=== PATIENT | female | born 1960 | race Caucasian/White ===

== ENCOUNTER → 2020-08-03 17:49 | Outpatient (CLI) | payer BC, SELFPAY ==
--- NOTE | ~2020-08-03 | MM_ITS ---
EXAMINATION: MM screening jarred BI w sea HISTORY: Screening TECHNIQUE: Craniocaudal and mediolateral oblique 3-D tomosynthesis images were obtained and synthetic 2-D images were generated. CAD analysis was submitted and interpreted. COMPARISON: No prior mammogram is available for comparison at this institution. BREAST PARENCHYMAL COMPOSITION: There are scattered areas of fibroglandular density. FINDINGS: There are developing subtle calcifications in the central aspect of the left breast. The ri ght breast is stable without evidence for malignancy. IMPRESSION: 1. Developing left breast calcifications. 2. Magnification views are recommended. BI-RADS Category 0: Incomplete: Needs additional imaging evaluation. Reviewed, dictated and finalized at location A. ORIGINATOR
== END ==
PROVIDERS: PCP Family Medicine; Visit Provider Obstetrics & Gynecology Gynecology
DX: Z12.31 Encounter for screening mammogram for malignant neoplasm of breast (principal); R92.8 Other abnormal and inconclusive findings on diagnostic imaging of breast
CPT/HCPCS: 77063; 77067

== ENCOUNTER → 2020-08-23 09:33 | Outpatient (CLI) | payer BC, SELFPAY ==
--- NOTE | ~2020-08-23 | MMUS_ITS ---
EXAMINATION: MM diagnostic mammo unilat LT, US breast BI complete HISTORY: Developing left breast calcifications reported on 08/03/2020 screening mammogram. In the meantime, patient reports bilateral palpable breast lumps, 2 on the left, one on the right TECHNIQUE: Additional 3-D ML tomosynthesis images of left breast were performed and synthetic 2-D abrahan ges were generated. Magnification views of left breast. CAD analysis was submitted and interpreted. H igh resolution bilateral complete breast ultrasound was performed. COMPARISON: bilateral digital screening mammogram 07/01/2013 bilateral breast ultrasound examination FINDINGS: MAMMOGRAPHIC FINDINGS: Occasional benign calcifications and arterial calcification are noted. No malignant calcifications ar e evident. ULTRASOUND: Left breast 9:00 3 cm from nipple: Parallel circumscribed approximately 1.5 x 4 mm sonolucency withou t suspicious shadowing, consistent with benign process. No suspicious mass or shadowing of either breast is evident otherwise. IMPRESSION: 1. No mammographic evidence of malignancy 2. Routine annual mammographic screening follow-up is recommended. BI-RADS Category 2: Benign finding(s). Reviewed, dictated and finalized at location A. 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 No mammographic evidence of malignancy 2. Routine annual mammographic screening follow-up is recommended. BI-RADS Category 2: Benign finding(s).
== END ==
PROVIDERS: Visit Provider Obstetrics & Gynecology Gynecology
DX: N63.25 Unspecified lump in the left breast, overlapping quadrants (principal)
CPT/HCPCS: 76641; 77065

== ENCOUNTER 2020-08-23 10:51 | Outpatient (CLI) | payer BC, SELFPAY ==
--- NOTE | 2020-08-23 11:23 | ECG_ITS ---
Measurements Intervals [place] Rate: 64 P: 42 AR: 156 QRS: 45 QRSD: 88 T: 46 QT: 379 QTc: 393 Interpretive Statements SINUS RHYTHM BASELINE WANDER- V4-V6 NORMAL ECG Electronically Signed On 08-23-2020 11:33:24 SMALL STOCK FACER by Ihsan Wilkins D.O.
== END 2020-08-23 10:52 | disposition home or self-care (01) ==
LOC: ANHLAB 10:52
PROVIDERS: Visit Provider Family Medicine
DX: R07.89 Other chest pain (principal)
CPT/HCPCS: 93005

== ENCOUNTER 2020-09-07 00:40 | Outpatient (CLI) | payer BC, SELFPAY ==
[2020-09-07 18:51] LABS: SARS-CoV-2 RNA PCR Negative
== END 2020-09-07 00:41 | disposition home or self-care (01) ==
LOC: ANHCOVIDDT 00:41
PROVIDERS: Visit Provider Internal Medicine Gastroenterology
DX: Z01.812 Encounter for preprocedural laboratory examination (principal); Z20.828 Contact with and (suspected) exposure to other viral communicable diseases
CPT/HCPCS: 87635; C9803; U0003

== ENCOUNTER 2020-09-10 01:17 | Day surgery (SDC) | payer BC, SELFPAY ==
[2020-09-03 12:25] VITALS: BMI 25.0
[2020-09-10 07:13] VITALS: BP 112/72; PULSE 84; RESP 18; TEMP 36.6; O2SAT 98
[2020-09-10] MEDS: LACTATED RINGERS 1,000 ML 150 ML IV CONT (07:26)
--- NOTE | 2020-09-10 08:06 | WPDGICN ---
Assessment and Plan Assessment and plan (1) Family history of colon cancer in mother: Code(s): Z80.0 - Family history of malignant neoplasm of digestive organs Status: Acute Assessment and Plan: Patient's mother developed colon cancer at age 49 and passed weight age 50. Plan is for screening colonoscopy now and at 5 year intervals in the future. GI Consult Note Consult date/time: 09/10/20 08:06 HPI: Mikki Blevins is a 60 year old female Seen in evaluation at the request of Dr Yana Hayden. patient presents for screening colonoscopy. Family history is significant that her mother with colon cancer at age 50. Patient states that her own current weight appetite bowel movements are normal. She denies abdominal pain. She has had no bleeding. Her last colonoscopy 6 years ago was unremarkable. Family history is otherwise unremarkable as well. [facility] Past Medical History Medical History (Updated 09/10/20 @ 08:07 by Gabo Prado MD) Normal colonoscopy (~09/04/14) Normal colonoscopy (~09/03/09) Pap smear for cervical cancer screening Family History Family History Grandparent Family history of malignant neoplasm Diabetes mellitus Mother Carcinoma of colon, Onset Age: 51 Patient's mother is , Onset Age: 51 Father Acute myocardial infarction, Onset Age: 58 Hypertension Family history of elevated blood lipids Cerebrovascular accident Family history of coronary artery disease Patient's father is , Onset Age: 58 Sibling Family history of rheumatoid arthritis Family history of alcoholism Family history of cardiovascular disease Acute myocardial infarction, Onset Age: 49 Family history of coronary artery disease Patient's brother is , Onset Age: 49 Social History Social History Smoking status: Never smoker Alcohol intake: current Drinks per week: 3 Alcohol use details: WINE Substance use: never Substance use type: does not use Living arrangements: with family Spiritual care concerns: No Meds Home Medications and Allergies Home Medications Medication Instructions Recorded Confirmed Type albuterol sulfate 90 mcg/actuation 2 puff INHALATION Q4-6H PRN gm 08/26/19 09/03/20 History aerosol inhaler amlodipine 2.5 mg-benazepril 10 mg 1 cap PO DAILY #90 cap 03/16/20 09/03/20 Rx capsule budesonide-formoterol HFA 160 2 puff INHALATION Q12H #10.2 gm 03/16/20 09/03/20 Rx mcg-4.5 mcg/actuation aerosol inhaler ergocalciferol (vitamin D2) 1,250 50,000 unit PO WEEKLY #14 cap 03/16/20 09/03/20 Rx mcg (50,000 unit) capsule fluticasone propionate 50 2 spray NASAL DAILY #9.9 ml 03/16/20 09/03/20 Rx mcg/actuation nasal spray,suspension lorazepam 0.5 mg tablet 0.5 mg PO DAILY PRN #30 tablet 03/16/20 09/03/20 Rx montelukast 10 mg tablet 10 mg PO DAILY #90 tablet 03/16/20 09/03/20 Rx simvastatin 20 mg tablet 20 mg PO DAILY #90 tablet 03/16/20 09/03/20 Rx hydrocortisone 1 % topical cream 1 applic TOPICAL TID PRN #30 gm 06/21/20 09/03/20 Rx olopatadine 1 drop EACH EYE Q6-8H PRN 09/03/20 09/03/20 History Allergies Allergy/AdvReac Type Severity Reaction Status Date / Time Penicillins Allergy Intermediate Skin Verified 09/10/20 07:11 Reaction Vital Signs Vital Signs - 24 hr 09/10/20 07:13 Temperature 97.8 F Pulse Rate 84 Respiratory Rate 18 Blood Pressure 112/72 Pulse Oximetry 98 Exam Narrative: Exam Narrative: Physical exam reveals patient to be alert. Vital signs stable. HEENT exam unremarkable. Lungs are clear to auscultation and percussion. Heart is without murmur or extra sounds. Abdominal exam bowel sounds are present soft nontender with no organomegaly. Digital external rectal exam is normal.
--- NOTE | 2020-09-10 08:37 | WPDANESEPPF ---
Anes - Initial Pre Proc Eval Procedure: Operation Date: 09/10/20 08:30 Proposed Procedures p Screening Colonoscopy - Gabo Prado MD Date/Time: 09/10/20 08:37 Surgeon: Gabo Prado MD Pre Op Diagnosis: neoplasm screening, hx of colon polyp Patient Data Age: 60 Gender: F Height: 5 ft 4 in Weight: 68.6 kg Last Vital Signs Temp 97.8 F 09/10/20 07:13 Pulse 84 09/10/20 07:13 Resp 18 09/10/20 07:13 BP 112/72 09/10/20 07:13 Pulse Ox 98 09/10/20 07:13 Allergies Allergy/AdvReac Type Severity Reaction Status Date / Time Penicillins Allergy Intermediate Skin Verified 09/10/20 07:11 Reaction Home Medications Medication Instructions Recorded Confirmed Type albuterol sulfate 90 mcg/actuation 2 puff INHALATION Q4-6H PRN gm 08/26/19 09/03/20 History aerosol inhaler amlodipine 2.5 mg-benazepril 10 mg 1 cap PO DAILY #90 cap 03/16/20 09/03/20 Rx capsule budesonide-formoterol HFA 160 2 puff INHALATION Q12H #10.2 gm 03/16/20 09/03/20 Rx mcg-4.5 mcg/actuation aerosol inhaler ergocalciferol (vitamin D2) 1,250 50,000 unit PO WEEKLY #14 cap 03/16/20 09/03/20 Rx mcg (50,000 unit) capsule fluticasone propionate 50 2 spray NASAL DAILY #9.9 ml 03/16/20 09/03/20 Rx mcg/actuation nasal spray,suspension lorazepam 0.5 mg tablet 0.5 mg PO DAILY PRN #30 tablet 03/16/20 09/03/20 Rx montelukast 10 mg tablet 10 mg PO DAILY #90 tablet 03/16/20 09/03/20 Rx simvastatin 20 mg tablet 20 mg PO DAILY #90 tablet 03/16/20 09/03/20 Rx hydrocortisone 1 % topical cream 1 applic TOPICAL TID PRN #30 gm 06/21/20 09/03/20 Rx olopatadine 1 drop EACH EYE Q6-8H PRN 09/03/20 09/03/20 History Patient hx anesthesia problems: none Family hx anesthesia problems: none PMFSH Past Medical History Medical History (Updated 09/10/20 @ 08:37 by Josh Salmon MD) Asthma Essential (primary) hypertension Mixed hyperlipidemia Normal colonoscopy (~09/04/14) Normal colonoscopy (~09/03/09) Pap smear for cervical cancer screening Family History Family History Grandparent Family history of malignant neoplasm Diabetes mellitus Mother Carcinoma of colon, Onset Age: 51 Patient's mother is , Onset Age: 51 Father Acute myocardial infarction, Onset Age: 58 Hypertension Family history of elevated blood lipids Cerebrovascular accident Family history of coronary artery disease Patient's father is , Onset Age: 58 Sibling Family history of rheumatoid arthritis Family history of alcoholism Family history of cardiovascular disease Acute myocardial infarction, Onset Age: 49 Family history of coronary artery disease Patient's brother is , Onset Age: 49 Social History Social History Smoking status: Never smoker Alcohol intake: current Drinks per week: 3 Alcohol use details: WINE Substance use: never Substance use type: does not use Living arrangements: with family Spiritual care concerns: No Anes - Eval Final PreProcedure Day of Procedure 09/10/20 08:37 Patient weight: normal Heart: regular rate and rhythm Lungs: clear to auscultation Airway: Mallampati scale class II Neurological: alert and oriented Last oral intake: >/= 8 hours ASA classification: II Emergent: no Anesthetic plan: proceed Anesthesia type and monitoring: general GIVS and standard monitoring Informed Consent: The patient's anesthetic plan and its attendant risks and benefits were discussed with the patient/family/POA. Questions were solicited and answers provided to the satisfaction of the patient/family/POA.
[2020-09-10 09:00] VITALS: BP 111/70; PULSE 76; RESP 17; O2SAT 98
[2020-09-10 09:10] VITALS: BP 97/59; PULSE 73; RESP 18; O2SAT 98
[2020-09-10 09:20] VITALS: BP 117/72; PULSE 73; RESP 20; O2SAT 98
== END 2020-09-10 09:35 | disposition home or self-care (01) ==
PROVIDERS: Visit Provider Internal Medicine Gastroenterology
PROC: 0DJD8ZZ Inspection of Lower Intestinal Tract, Via Natural or Artificial Opening Endoscopic (ICD-10-PCS; CPT 45378; principal; 2020-09-10 08:30)
DX: Z12.11 Encounter for screening for malignant neoplasm of colon (principal); Z80.0 Family history of malignant neoplasm of digestive organs; K64.8 Other hemorrhoids; Z79.51 Long term (current) use of inhaled steroids; J45.909 Unspecified asthma, uncomplicated; E78.2 Mixed hyperlipidemia; I10 Essential (primary) hypertension
CPT/HCPCS: 45378; J2704; J7120

== ENCOUNTER 2025-01-09 15:37 | Outpatient (CLI) | payer BC, SELFPAY ==
--- NOTE | ~2025-01-09 | XR_ITS ---
Lumbosacral Spine: AP and lateral views Clinical History: Pain Findings: The normal lordotic curve is maintained. No fracture seen. There is minimal grade 1 anterol isthesis of L4 over L5. There is moderate to advanced facet arthropathy throughout the lumbar spine. There is mild to moderate degenerative disc change at L4-L5 and L5-S1. The sacroiliac joints are norm ally outlined. Impression: Moderate degenerative spondylosis, as above. Reviewed, dictated and finalized at location M. Impression: Moderate degenerative spondylosis, as above.
--- NOTE | ~2025-01-09 | MR_ITS ---
MRI of the lumbar spine Clinical History: Back pain Technique: Axial T2-weighted images, and sagittal T1-weighted, T2-weighted, and and T2 fat-sat images were acquired. Findings: There is no fracture or subluxation of the lumbar spine. Vertebral bodies maintain normal h eight and line. No bone marrow signal abnormality seen. At L1-L2, there is no disc bulge or herniation. No spinal canal stenosis or neural foraminal narrowin g. At L2-L3, there is no disc bulge or herniation. There is minimal facet arthropathy. No central canal stenosis or neural foraminal narrowing. L3-L4, there is mild disc bulge and moderate facet arthropathy. No nina central canal stenosis. Neur al foramina are preserved. At L4-L5, there is mild disc bulge with moderate to advanced facet arthropathy. No central canal sten osis. No definite neural foraminal narrowing. At L5-S1, there is mild disc bulge with moderate facet arthropathy. No central canal stenosis or neur al foraminal narrowing. Paravertebral soft tissues are unremarkable. Impression: Mild degenerative changes, as above. Reviewed, dictated and finalized at location M. Impression: Mild degenerative changes, as above.
== END 2025-01-09 15:38 | disposition home or self-care (01) ==
LOC: GOSHIMG 15:40
PROVIDERS: PCP Chiropractor; Visit Provider Family Medicine
DX: M47.26 Other spondylosis with radiculopathy, lumbar region (principal); R20.0 Anesthesia of skin; M54.50 Low back pain, unspecified; M79.606 Pain in leg, unspecified
CPT/HCPCS: 72100; 72148

== ENCOUNTER 2025-06-03 10:27 | Outpatient (CLI) | payer BC, SELFPAY ==
--- NOTE | 2025-06-03 10:20 | NEURO_ITS ---
Impression: # Complains of left lower extremity pain and discomfort ? 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 ? # Higher involvement cannot be ruled out. Nerve Conduction Studies ?Stim Site NR Peak (ms) P-T Amp (?V) Site1 Site2 Delta-P (ms) Dist (cm) Jama (m/s) Left Sup Fibular Anti Sensory (Ant Lat Mall) 14 cm ? 3.1 7.9 14 cm Ant Lat Mall 3.1 16.0 52 Right Sup Fibular Anti Sensory (Ant Lat Mall) 14 cm ? 3.2 9.3 14 cm Ant Lat Mall 3.2 16.0 50 Left Sural Anti Sensory (Lat Mall) Calf ? 3.9 8.9 Calf Lat Mall 3.9 16.0 41 Right Sural Anti Sensory (Lat Mall) Calf ? 3.7 3.6 Calf Lat Mall 3.7 16.0 43 ?Stim Site NR Onset (ms) O-P Amp (mV) Site1 Site2 Delta-0 (ms) Dist (cm) Jama (m/s) Left Peroneal Motor (Vastus Med) Ankle ? 4.5 4.5 Popit Ankle 8.2 39.0 48 Popit ? 12.7 3.0 Right Peroneal Motor (Vastus Med) Ankle ? 2.8 4.4 Popit Ankle 8.3 38.0 46 Popit ? 11.1 3.6 Left Tibial Motor (Abd Kellogg Brev) Ankle ? 5.2 5.6 Knee Ankle 9.3 40.0 43 Knee ? 14.5 3.8 Right Tibial Motor (Abd Kellogg Brev) Ankle ? 4.5 4.8 Knee Ankle 8.3 39.0 47 Knee ? 12.8 3.4 F Wave Studies ?NR F-Lat (ms) L-R F-Lat (ms) Left Peroneal (Mrkrs) (EDB) ? 45.24 0.36 Right Peroneal (Mrkrs) (EDB) ? 44.88 0.36 Left Tibial (Mrkrs) (Abd Hallucis) ? 49.53 0.78 Right Tibial (Mrkrs) (Abd Hallucis) ? 50.31 0.78 Electromyography ?Side Muscle Nerve Root Ins Act Fibs Amp Dur Recrt Comment Right AntTibialis Dp Br Fibular L4-5 Nml Nml Nml Nml Nml Right Gastroc Tibial S1-2 Nml Nml Nml Nml Nml Right Fibularis Long Sup Br Fibular L5-S1 Nml Nml Nml Nml Nml Right Flex Dig Long Tibial L5-S2 Nml Nml Nml Nml Nml Right Ext Dig Brev Dp Br Fibular L5, S1 Nml Nml Nml Nml Nml Right QuadratusFem QuadFemoris L4-5, S1 Nml Nml Nml Nml Nml Left AntTibialis Dp Br Fibular L4-5 Nml Nml Nml Nml Nml Left Gastroc Tibial S1-2 Nml Nml Nml >12ms +1 Left Fibularis Long Sup Br Fibular L5-S1 Nml Nml Nml Nml Nml Left Flex Dig Long Tibial L5-S2 Nml Nml Nml Nml Nml Left Ext Dig Brev Dp Br Fibular L5, S1 Nml Nml Nml Nml Nml Left QuadratusFem QuadFemoris L4-5, S1 Nml Nml Nml Nml Nml
--- OUTSIDE RECORDS SUMMARY | 2025-06-03 11:52 | XMS_ITS | Clinical Summary ---
Author Organization [address] Address [address] [place] [id number] Care Team Providers Care Transmission Calibration Engineer Name Role Phone Anand Massey MD Primary Care Provider [phone] Allergies Active Allergy Reactions Criticality Noted Date Comments Penicillins Hives,Rash,Shortness of Breath/Wheezing,Unknown High 02/21/1970 Simvastatin Other (See Comments) 01/10/2024 Heart palpitations Medications budesonide-form oteroL (SYMBICORT) 160-4.5 mcg/actuation HFA Aerosol Inhaler INHALE 2 PUFFS EVERY 12 HOURS 0 Active ergocalciferol (VITAMIN D2) 50,000 unit capsule 1 Active fluticasone propionate (FLONASE) 50 mcg/spray [place], Suspension nasal inhaler Administer 2 Sprays in each nostril daily. 0 Active losartan (COZAAR) 25 mg tablet Take 12.5 mg by mouth daily. 4 Active montelukast (SINGULAIR) 10 mg tablet Take 10 mg by mouth daily. Active pravastatin (PRAVACHOL) 10 mg tablet Take 10 mg by mouth. 3 Active LORazepam (ATIVAN) 0.5 mg tablet take 1 tablet (0.5 mg) orally daily as needed for anxiety Active Active Problems No known active problems Encounters Date Type Department Care Team Description 06/03/2025 Chart Note [facility] Jose Luis. [address] [place] [address] Luz Maria Dunlap MD Surgery 05/28/2025 Telephone [facility] Clinical Support [address] [place] [address] [place] [address] Fay Anderson, RN request to schedule LEEP 05/05/2025 External Device Data ST[facility] ABSTRACTION Provider, Abstract 04/27/2025 2:15 PM CDT Procedure visit [facility] [address] 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 Relation Name Status Comments Brother Father Maternal Grandmother Mother Sister 1 Britni Alive Sister 2 Alive Social History Tobacco Use Types Packs/Day Years Used Date Smoking Tobacco: Never Smokeless Tobacco: Never Tobacco Cessation:Counseling Given: Not Answered Alcohol Use Standard Drinks/Week Comments Yes 0 (1 standard drink = 0.6 oz pur e alcohol) socially Comments No Sex and Gender Information Value Date Recorded Sex Assigned at Not on file Legal Sex Female 5:36 PM CDT Gender Identity Not on file Sexual Orientation Not on file Last Filed Vital Signs Vital Sign Reading Time Taken Comments Blood Pressure 142/80 04/27/2025 2:38 PM CDT Pulse 77 07/01/2024 1:30 PM CDT Temperature - - Respiratory Rate - - Oxygen Saturation - - Inhaled Oxygen Concentration - - Weight 74.9 kg (165 lb 3.2 oz) 04/27/2025 2:38 P M CDT Height 162.6 cm (5' 4) 04/27/2025 2:38 PM CDT Body Mass Index 28.36 04/27/2025 2:38 PM CDT Plan of Treatment Health Maintenance Due Date Last Done Comments Pre-Diabetes and Diabetes Screening 1960 DTAP/TDAP/TD VACCINES (1 - Tdap) 02/21/1979 FIT-DNA Q 3 years 02/21/2005 FIT/FOBT Q 1 year 02/21/2005 Flex Sig/CT Colonography Q 5 years 02/21/2005 PNEUMOCOCCAL VACCINE 50+ YEA RS (1 of 1 - PCV) 02/21/2010 ZOSTER VACCINE (1 of 2) 02/21/2010 INFLUENZA VACCINE (#1) 2025 BREAST CANCER SCREENING 09/01/2025 09/01/20 24, 08/23/2020, 08/03/2020, Additional history exists OSTEOPOROSIS SCREENING 09/01/2029 4, 02/28/2019, 08/04/2016 COLORECTAL SCREENING 09/10/2030 09/10/2020 Colorectal Cancer Screening 09/10/2030 RSV VACCINE (60+ or ) (1 - 1-dose 75+ series) 02/21/2035 Preventative Visit- Commercial Completed 02/10/2025 Procedures Procedure Name Priority Date/Time Associated Diagnosis Comments MAMMO 3D FELY SCREEN BILAT W OR WO CAD Routine 09/01/2024 3:15 PM PICTURE PAINTER Breast cancer screening by mammogram XR DEXA BONE DENSITY AXIAL 1 OR MORE SITES Routine 09/01/2024 2:53 PM PICTURE PAINTER Osteoporosis screening from Last 3 Months or Most Recently Relevant to Health Maintenance Results * MAMMO 3D FELY SCREEN BILAT W OR WO CAD (09/01/2024 3:15 PM PICTURE PAINTER) Anatomical Region Laterality Modality Breast Bilateral Mammography 09/01/2024 4:29 PM PICTURE PAINTER Impressions 09/02/2024 8:10 AM PICTURE PAINTER IMPRESSION: No mammographic evidence of malignancy. RECOMMENDATIONS: Routine screening mammogram in one year. DICTATION LOCATION: [facility] Narrative 09/02/2024 8:10 AM PICTURE PAINTER BILATERAL FULL-FIELD DIGITAL SCREENING MAMMOGRAM WITH CAD WITH 3D TOMOSYNTHESIS DATE: 09/01/2024 3:15 PM HISTORY: Routine screening. TECHNIQUE: Full-field digital craniocaudal and mediolateral oblique projections of both breasts were obtained. Low-dose full-field digital breast tomosynthesis examination was performed with 2D and 3D acquisitions. Examination is read in conjunction with computer aided detection. COMPARISON: No prior study is available for comparison. BREAST COMPOSITION: There are scattered areas of fibroglandular density. FINDINGS: No suspicious mass, suspicious microcalcifications, or architectural distortion in either breast is identified. The computer aided diagnosis detects no significant abnormality. OVERALL FINAL ASSESSMENT: BI-RADS CATEGORY 1 : Negative. Procedure Note Brandon Dyer MD - 09/02/2024 BILATERAL FULL-FIELD DIGITAL SCREENING MAMMOGRAM WITH CAD WITH 3D TOMOSYNTHESIS DATE: 09/01/2024 3:15 PM HISTORY: Routine screening. TECHNIQUE: Full-field digital craniocaudal and mediolateral oblique projections of both breasts were obtained. Low-dose full-field digital breast tomosynthesis examination was performed with 2D and 3D acquisitions. Examination is read in conjunction with computer aided detection. COMPARISON: No prior study is available for comparison. BREAST COMPOSITION: There are scattered areas of fibroglandular density. FINDINGS: No suspicious mass, suspicious microcalcifications, or architectural distortion in either breast is identified. The computer aided diagnosis detects no significant abnormality. OVERALL FINAL ASSESSMENT: BI-RADS CATEGORY 1 : Negative. IMPRESSION: No mammographic evidence of malignancy. RECOMMENDATIONS: Routine screening mammogram in one year. DICTATION LOCATION: [facility] Luz Maria Dunlap MD MAMMO ORDERABLES Final Result * XR DEXA BONE DENSITY AXIAL 1 OR MORE SITES (09/01/2024 2:53 PM PICTURE PAINTER) Anatomical Region Laterality Modality Digital Radiogra phy 09/01/2024 2:53 PM PICTURE PAINTER Narrative 09/01/2024 3:06 PM PICTURE PAINTER XR DEXA BONE DENSITY AXIAL 1 OR MORE SITES DATE: 09/01/2024 2:53 PM HISTORY: 64 years old Female with post menopausal symptoms. PROCEDURE: Planar images of the lumbar spine and hip(s) using a [employer] [place] DEXA scanner for bone mineral density determination (BMD). Absolute bone mineral density measurements (in gm/cm^2) are available on the original PACS report. FINDINGS: Lumbar Spine (L1-L4) T-score: -0.3 Left femoral neck T-score: -0.8 Right femoral neck T-score: -1.0 Comments: None IMPRESSION Normal bone mineral density. DEFINITIONS: Normal: T-score above -1.0 Osteopenia T-score less than -1.0 and above -2.5 Osteoporosis: T-score < -2.5 FRAX FRACTURE RISK ASSESSMENT: Risk factors: History of fracture and secondary osteoporosis 10 Year Probability Of Fracture -Major Osteoporotic: 13.0% -Hip: 0.9% -Comparison population: [place], A major osteoporotic fracture is defined as a fracture of the spine, forearm, hip or shoulder. FOLLOW-UP RECOMMENDATIONS: Patients without high risk factors for osteoporosis: T-score -1.0 to -1.5 - Consider repeat BMD in 5-10 years T-score -1.5 to -2.0 - Consider repeat BMD in 3-5 years T-score -2.0 to - 2.5 - Consider repeat BMD every 2 years Patients on treatment for osteoporosis: 1-2 years after initiation of treatment and every 2 years thereafter Dictated by Kobe Ruiz DO DICTATION LOCATION: Location 1 - [facility] Procedure Note Kobe Ruiz DO - 09/01/2024 XR DEXA BONE DENSITY AXIAL 1 OR MORE SITES DATE: 09/01/2024 2:53 PM HISTORY: 64 years old Female with post menopausal symptoms. PROCEDURE: Planar images of the lumbar spine and hip(s) using a [employer] [place] DEXA scanner for bone mineral density determination (BMD). Absolute bone mineral density measurements (in gm/cm^2) are available on the original PACS report. FINDINGS: Lumbar Spine (L1-L4) T-score: -0.3 Left femoral neck T-score: -0.8 Right femoral neck T-score: -1.0 Comments: None IMPRESSION Normal bone mineral density. DEFINITIONS: Normal: T-score above -1.0 Osteopenia T-score less than -1.0 and above -2.5 Osteoporosis: T-score < -2.5 FRAX FRACTURE RISK ASSESSMENT: Risk factors: History of fracture and secondary osteoporosis 10 Year Probability Of Fracture -Major Osteoporotic: 13.0% -Hip: 0.9% -Comparison population: [place], A major osteoporotic fracture is defined as a fracture of the spine, forearm, hip or shoulder. FOLLOW-UP RECOMMENDATIONS: Patients without high risk factors for osteoporosis: T-score -1.0 to -1.5 - Consider repeat BMD in 5-10 years T-score -1.5 to -2.0 - Consider repeat BMD in 3-5 years T-score -2.0 to - 2.5 - Consider repeat BMD every 2 years Patients on treatment for osteoporosis: 1-2 years after initiation of treatment and every 2 years thereafter Dictated by Kobe Ruiz DO DICTATION LOCATION: Location 1 - [facility] us Luz Maria Dunlap MD DIAGNOSTIC IMAGING ORDERABLES Fi nal Result from Last 3 Months or Most Recently Relevant to Health Maintenance Insurance [facility] MemfoACT CHOICE Care Teams Transmission Calibration Engineer Relationship Specialty Start Date End Date Anand Massey MD [address] [place] [address] PCP - General Family Practice 06/30/19
--- OUTSIDE RECORDS SUMMARY | 2025-06-03 11:52 | XMS_ITS | Encounter Summary ---
Author Organization [facility] Address [address] [place] [address] Care Team Providers Care Dietary Director Name Role Phone Yana Hayden DO Primary Care Provider [phone] Bryan López MD Unavailable [phone] Encounter Details Date Type Department Care Team (Late st Contact Info) Description 06/19/2023 Lab Requisition [facility] - DermPath Lab [address] [place] [id number] Social History Tobacco Use Types Packs/Day Years Used Date Smoking Tobacco: Never Smokeless Tobacco: Never Alcohol Use Standard Drinks/Week Comments Yes 0 (1 standard drink = 0.6 oz pur e alcohol) social Comments Unknown Sex and Gender Information Value Date Recorded Sex Assigned at Not on file Legal Sex Female 11:18 AM SOURCING ENGINEER Gender Identity Not on file Sexual Orientation Not on file documented as of this encounter Plan of Treatment Upcoming Encounters Date Type Department Care Team (Late st Contact Info) Description 10/28/2025 1:45 PM SOURCING ENGINEER Office Visit [facility] V[facility] Care [id number] [place] [address] Bryan López MD [address] [place] [address] documented as of this encounter Visit Diagnoses Not on filedocumented in this encounter Care Teams Dietary Director Relationship Specialty Start Date End Date Yana Hayden DO [address] [place] [address] PCP - General Family Medicine 12/29/20 Bryan López [place] [id number] [address] Consulting Physician Cardiac Electrophysiology 12/29/20 documented as of this encounter
--- OUTSIDE RECORDS SUMMARY | 2025-06-03 11:52 | XMS_ITS | Encounter Summary ---
Author Organization [facility] Address [address] [place] [address] Care Team Providers Care Explosive Ordnance Manager Name Role Phone Anand Massey MD Primary Care Provider [phone] Reason for Visit * Reason Onset Date Comments request to schedule LEEP 05/28/2025 Encounter Details Date Type Department Care Team (Late st Contact Info) Description 05/28/2025 Telephone [facility] Health Clinical Support [address] [place] [address] [place] [address] Fay Anderson, RN request to schedule LEEP Social History Tobacco Use Types Packs/Day Years [...] on file documented as of this encounter Miscellaneous Notes * Telephone Encounter - Fay Anderson RN - 05/28/2025 10:41 AM CDT Patient states at her colposcopy visit she thinks she was told she needs to schedule a LEEP but shehas not received a call to schedule. she would like to schedule in June documented in this encounter Plan of Treatment Not on file documented as of this encounter Visit Diagnoses Not on filedocumented in this encounter Care Teams Explosive Ordnance Manager Relationship Specialty Start Date End Date Anand Massey MD [address] [place] [address] PCP - General Family Practice 06/30/19 documented as of this encounter
--- OUTSIDE RECORDS SUMMARY | 2025-06-03 11:52 | XMS_ITS | Clinical Summary ---
Author Organization [facility] Address [address] [place] [address] Care Team Providers Care Burnishing Machine Operator Name Role Phone Purvi Chacon MD Unavailable [phone] Yana Hayden DO Primary Care Provider [phone] Allergies Active Allergy Reactions Criticality Noted Date Comments Penicillins Hives,Other (See comments),Rash,Shortness of breath,Unknown High 02/21/1970 Medications albuterol HFA (PROVENTIL HFA,VENTOLIN HFA,PROAIR HFA) 90 mcg/actuation inhaler INHALE 2 PUFFS BY MOUTH EVERY 4 6 HOURS NEEDED 0 Active amLODIPine-sita zepriL (LOTREL 2.5-10) 2.5-10 mg per capsule 1 Active budesonide-form oteroL (Symbicort) 160-4.5 mcg/actuation inhaler INHALE 2 PUFFS EVERY 12 HOURS 0 Active ergocalciferol (VITAMIN D) 50,000 unit capsule 1 Active fluticasone propionate (FLONASE) 50 mcg/actuation nasal spray SPRAY 2 SPRAYS INTO EACH NOSTRIL EVERY DAY 2 Active LORazepam (ATIVAN) 0.5 mg tablet TAKE 1 TABLET BY MOUTH ONCE DAILY NEEDED FOR ANXIETY 0 Active montelukast (SINGULAIR) 10 mg tablet 1 Active olopatadine (PATANOL) 0.1 % ophthalmic solution Administer 1 drop into affected eye(s) 2 (two) times a day Active omeprazole (PriLOSEC) 20 mg capsule daily 2 Active simvastatin (ZOCOR) 20 mg tablet Take 20 mg by mouth daily 0 Active Active Problems Problem Noted Date Diagnosed Date Breast pain 12/29/2020 Encounters Date Type Department Care Team Description 05/27/2025 3:15 PM CDT - 05/27/2025 11:59 PM CDT Hospital Encounter [facility] [id number] [address] [address] Abnormal chest x-ray Discharge Disposition: Discharge to home or self care from Last 3 Months Social History Tobacco Use Types Packs/Day Years Used Date Smoking Tobacco: Never Comments Unknown Sex and Gender Information Value Date Recorded Sex Assigned at Not on file Legal Sex Female 9:59 AM UNIFIED COMMUNICATIONS ENGINEER Gender Identity Not on file Sexual Orientation Not on file Obstetrics History Last Filed Vital Signs Vital Sign Reading Time Taken Comments Blood Pressure - - Pulse - - Temperature - - Respiratory Rate - - Oxygen Saturation - - Inhaled Oxygen Concentration - - Weight 72.1 kg (159 lb) 12/29/2020 2:04 PM CDT Height 175.3 cm (5' 9) 12/29/2020 2:04 PM CDT Body Mass Index 23.48 12/29/2020 2:04 PM CDT Plan of Treatment Health Maintenance Due Date Last Done Comments Cervical Cancer Screening 1960 Colon Cancer Screening-Colonoscopy 1960 Depression Screening 1960 Fall Risk Assessment 1960 Hepatitis C Screening 1960 Hepatitis B Screening 02/21/1978 Zoster Vaccine (1 of 2) 02/21/2010 Pneumococcal vaccine 65+ (3 of 3 - PCV20 or PCV21) 09/07/2020 09/07/2015, 08/13/2014 Well Visit 65+ 02/21/2025 Influenza Vaccine (#1) 2025 0, 06/19/2019, 07/18/2018, Additional history exists Breast Cancer Screening-Mammogram 09/01/2025 024, 09/01/2024 Osteoporosis Screening-Bone Density Scan 09/01/2026 09/01/2024, 09/01/2024 DTaP/Tdap/Td Vaccine (3 - Td or Tdap) 09/04/2026 09/04/2016, 06/05/2006, 03/11/1996 Procedures Procedure Name Priority Date/Time Associated Diagnosis Comments CT CHEST HIGH RESOLUTION WO CONTRAST Schedule Routine, Read Routine (OP Routine) 05/27/2025 3:38 PM CDT Abnormal chest x-ray from Last 3 Months Results * CT Chest High Resolution WO Contrast (05/27/2025 3:38 PM CDT) Anatomical Region Laterality Modality Chest N/A Computed Tomogra phy 05/27/2025 9:30 PM CDT Impressions 05/27/2025 9:30 PM CDT 1. Normal chest CT. 2. Hepatic steatosis. Electronically signed by: Arnie Csatorena M.D. Narrative 05/27/2025 9:30 PM CDT Examination: Computed tomography of the chest without intravenous contrast DATE: 05/27/2025. HISTORY: Abnormal chest radiograph. TECHNIQUE: Computed tomography of the chest was obtained without intravenous contrast according to standard protocol. FINDINGS: No prior studies are available for comparison. No consolidation, effusion, or pneumothorax. No fibrosis. No suspicious pulmonary nodules or masses. No supraclavicular, axillary, mediastinal, or hilar lymphadenopathy. Heart size normal, no pericardial effusion. Upper abdomen is notable for hepatic steatosis. Bone windows demonstrate no lytic or blastic lesions. Procedure Note Arnie Castorena MD - 05/27/2025 Examination: Computed tomography of the chest without intravenous contrast DATE: 05/27/2025. HISTORY: Abnormal chest radiograph. TECHNIQUE: Computed tomography of the chest was obtained without intravenous contrast according to standard protocol. FINDINGS: No prior studies are available for comparison. No consolidation, effusion, or pneumothorax. No fibrosis. No suspicious pulmonary nodules or masses. No supraclavicular, axillary, mediastinal, or hilar lymphadenopathy. Heart size normal, no pericardial effusion. Upper abdomen is notable for hepatic steatosis. Bone windows demonstrate no lytic or blastic lesions. IMPRESSION: 1. Normal chest CT. 2. Hepatic steatosis. Electronically signed by: Arnie Castorena M.D. Tanner Lock MD IMG CT PROCEDURES Final Resu lt from Last 3 Months Insurance [place] [employer] GENERIC Care Teams Burnishing Machine Operator Relationship Specialty Start Date End Date Yana Hayden DO [address] [place] [address] PCP - General Family Medicine 12/29/20 Purvi Chacon MD [address] [place], [place] [id number] Referring Physician Gynecology 11/04/20
--- OUTSIDE RECORDS SUMMARY | 2025-06-03 11:52 | XMS_ITS | Encounter Summary ---
Author Organization [facility] Address [address] [place] [address] Care Team Providers Care Deli Slicer Name Role Phone Yana Hayden DO Primary Care Provider [phone] Bryan López MD Unavailable [phone] Encounter Details Date Type Department Care Team (Late st Contact Info) Description 06/19/2023 Lab Requisition [facility] - DermPath Lab [address] [facility], [place] [phone] James Lozoya MD [address] [address] [place] [address] Social History Tobacco Use Types Packs/Day Years Used Date Smoking Tobacco: Never Smokeless Tobacco: Never Alcohol Use Standard Drinks/Week Comments Yes 0 (1 standard drink = 0.6 oz pur e alcohol) social Comments Unknown Sex and Gender Information Value Date Recorded Sex Assigned at Not on file Legal Sex Female 11:18 AM CRYPTOLOGIC SUPERVISOR Gender Identity Not on file Sexual Orientation Not on file documented as of this encounter Plan of Treatment Upcoming Encounters Date Type Department Care Team (Late Contact Info) Description 10/28/2025 1:45 PM CRYPTOLOGIC SUPERVISOR Office Visit [facility] [address] [facility], [address] [address] Bryan Ló[place] [address] [facility] [address] [place] [address] documented as of this encounter Procedures Procedure Name Priority Date/Time Associated Diagnosis Comments DERMATOPATHOLOGY Routine 06/18/2023 12:0 0 AM CDT documented in this encounter Results * DERMATOPATHOLOGY (06/18/2023 12:00 AM CDT) Case Report Dermatopathology Report Case: [id number] Authorizing Provider: James Lozoya MD Collected: 06/18/2023 12:00 AM Ordering Location: [facility] Lab Received: 06/19/2023 03:56 PM Pathologist: Bell Goff MD Specimen: Skin, left lower leg 5:55 PM CDT DERMATOPATHOLOGY LABORATORY Final Diagnosis Specimen A. 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 The specimen consists of a shave biopsy measuring 7x5x1 mm. Jar 0. 3 5:55 PM CDT DERMATOPATHOLOGY LABORATORY Microscopic Description Specimen A. SKIN, left lower leg: The epidermis shows parakeratosis, full thickness disorderly maturation of keratinocytes, mitoses at different levels, and dyskeratotic cells. 3 5:55 PM CDT DERMATOPATHOLOGY LABORATORY Disclaimer An external and internal positive and negative controls are appropriate for the histochemical, immunohistochemical and immunofluorescence stain(s) in this case (if any), except where stated explicitly. The performance characteristics of the stain(s) cited in this report were developed and its performance characteristic determined by the Dermatopathology Laboratory at [facility], directed by Dr. Cathie Goff. These tests need not be, and therefore are not, approved by the [place] Food and Drug Administration. The tests are used for clinical purposes. Billing Codes Specimen Charges Stain Charges 43076 1 3 5:55 PM CDT DERMATOPATHOLOGY LABORATORY Embedded Images 3 5:55 PM CDT DERMATOPATHOLOGY LABORATORY Pathology/Cytolog y TISSUE SPECIMEN FROM SKIN / Unknown 06/18/2023 06/19/2023 3:56 PM CDT James Lozoya MD LAB - PATHOLOGY/CYTOLOGY ORDER ANDRES Final Result DERMATOPATHOLOGY LABORATORY [facility] - Department of Dermatology [facility] [address] [place] [address], [address] [phone] documented in this encounter Visit Diagnoses Not on filedocumented in this encounter Care Teams Deli Slicer Relationship Specialty Start Date End Date Yana Hayden DO [address] [place] [address] PCP - General Family Medicine 12/29/20 Bryan López [place] [address] [address] Consulting Physician Cardiac Electrophysiology 12/29/20 documented as of this encounter
--- OUTSIDE RECORDS SUMMARY | 2025-06-03 11:52 | XMS_ITS | Encounter Summary ---
Author Organization [facility] Address [address] [place] [address] Care Team Providers Care Senior Litigation Paralegal Name Role Phone Anand Massey MD Primary Care Provider [phone] Reason for Visit * Reason Comments Surgery Encounter Details Date Type Department Care Team (Late st Contact Info) Description 06/03/2025 Chart Note [facility] [address] [facility] [place] [address] Luz Maria Dunlap MD [address] [place] [address] Surgery Social History Tobacco Use Types Packs/Day Years [...] as of this encounter Plan of Treatment Not on file documented as of this encounter Visit Diagnoses Not on filedocumented in this encounter Care Teams Senior Litigation Paralegal Relationship Specialty Start Date End Date Anand Massey MD [address] [place] [place] [address] PCP - General Family Practice 06/30/19 documented as of this encounter
--- OUTSIDE RECORDS SUMMARY | 2025-06-03 11:52 | XMS_ITS | Clinical Summary ---
Author Organization [facility] Address [address] [place] [address] Care Team Providers Care Breakfast Hostess Name Role Phone Yana Hayden DO Primary Care Provider [phone] Bryan López MD Unavailable [phone] Source Comments [facility],non-owned Affiliates and Associated Physician Practices is amultiple site organization consisting of ambulatory clinics and hospital sitesin [place], [place], [place] and [place]. This disclosure is being madepursuant to the Care Everywhere program and may not contain all information available regarding this patient. Last updated 18.[facility] Allergies Active Allergy Reactions Criticality Noted Date Comments Penicillins Rash Medium 12/29/2020 Medications * Be aware that medications may not be up to date on this document. Alwaysverify current medications with the patient. albuterol HFA (PROVENTIL;SWAPNIL VERA;PROAIR) 108 (90 Base) MCG/ACT inhaler INHALE 2 PUFFS BY MOUTH EVERY 4 6 HOURS NEEDED 0 Active SYMBICORT 160-4.5 MCG/ACT inhaler INHALE 2 PUFFS EVERY 12 HOURS 0 Active vitamin D, ergocalciferol, (DRISDOL) 1.25 MG (20522 UT) capsule 1 Active fluticasone propionate (FLONASE) 50 MCG/ACT nasal spray SPRAY 2 SPRAYS INTO EACH NOSTRIL EVERY DAY 0 Active montelukast (SINGULAIR) 10 MG tablet 1 Active olopatadine (PATANOL) 0.1 % ophthalmic solution Instill 1 (one) drop into both eyes 2 times daily Active pravastatin (Pravachol) 10 MG tablet Take 1 (one) tablet by mouth at bedtime 30 tablet 11 4 Active Additional Information Patient not taking.Reported on 04/15/2025 LORazepam (Ativan) 0.5 MG tablet Take 1 (one) tablet by mouth 3 times daily as needed for Anxiety or Agitation 90 tablet 4 Active losartan (Cozaar) 25 MG tabletIndication s:Essential hypertension TAKE 1 TABLET BY MOUTH EVERY DAY 90 tablet 3 5 Active Active Problems Problem Noted Date Diagnosed Date Chest pain 10/22/2022 Palpitations 02/13/2021 Essential hypertension 01/02/2021 Encounters Date Type Department Care Team Description 04/15/2025 2:00 PM CDT Office Visit [facility] [address] [place] [address] Bryan López MD Palpitations (Primary Dx); Essential hypertension; Mixed hyperlipidemia from Last 3 Months Social History Tobacco Use Types Packs/Day Years Used Date Smoking Tobacco: Never Smokeless Tobacco: Never Tobacco Cessation:Counseling Given: Not Answered Alcohol Use Standard Drinks/Week Comments Yes 0 (1 standard drink = 0.6 oz pur e alcohol) social Comments Unknown Sex and Gender Information Value Date Recorded Sex Assigned at Not on file Legal Sex Female 11:18 AM SENIOR MARKETING ENGINEER Gender Identity Not on file Sexual Orientation Not on file Last Filed Vital Signs Vital Sign Reading Time Taken Comments Blood Pressure 142/92 04/15/2025 2:57 PM CDT Pulse 95 04/15/2025 2:57 PM CDT Temperature 36.2 C (97.2 F) 07/14/2021 2:00 PM CDT Respiratory Rate 16 07/20/2023 2:22 PM CDT Oxygen Saturation 98% 09/12/2024 2:54 PM SENIOR MARKETING ENGINEER Inhaled Oxygen Concentration - - Weight 72.6 kg (160 lb) 04/15/2025 2:57 PM CDT Height 164.6 cm (5' 4.8) 04/15/2025 2:57 PM CDT Body Mass Index 26.79 04/15/2025 2:57 PM CDT Plan of Treatment Upcoming Encounters Date Type Department Care Team (Late st Contact Info) Description 10/28/2025 1:45 PM SENIOR MARKETING ENGINEER Office Visit [facility] Heart & Vascular Care [address] [facility] [address] [place] [address] Bryan Ló[place] [address] [facility] [address] [place] [address] Health Maintenance Due Date Last Done Comments COLOGUARD (AGES 45-75) - COL ON CA SCREENING 1960 COLON MONITORING 1960 COLONOSCOPY - COLON CA SCREENING 1960 CT COLONOGRAPHY - COLON CA SCREENING 1960 Colorectal Cancer Screening 1960 FIT - COLON CA SCREENING 1960 FLEX SIG - COLON CA SCREENING 1960 HIV SCREENING 02/21/1975 HEPATITIS C SCREENING 02/17/1978 DTAP/TDAP/TD VACCINES (1 - Tdap) 02/21/1979 PAP SMEAR 02/21/1981 PNEUMOCOCCAL VACCINE 50+ (1 of 1 - PCV) 02/21/2010 ZOSTER VACCINE (1 of 2) 02/21/2010 COVID-19 VACCINE ( - 2023-2 5 season) 2024 DEPRESSION SCREENING 10/01/2024 INFLUENZA VACCINE (#1) 2025 MAMMOGRAM 09/01/2026 09/01/2024, 09/01/2024 SCREENING FOR DIABETES 11/26/2027 11/26/2024 Respiratory Syncytial Virus (RSV) Vaccine Pt: or over 60 yrs (1 - 1-dose 75+ series) 02/21/2035 BONE DENSITY TESTING Completed 09/01/2024 HEPATITIS B VACCINE Aged Out No longe r eligible based on patient's age to complete this topic HIB VACCINE Aged Out No longer eligi ble based on patient's age to complete this topic HPV VACCINE Aged Out No longer eligi ble based on patient's age to complete this topic MENINGOCOCCAL (Group B) VACCINE SHARED DECISION-MAKING Aged Out No longer eligible based on patient's age to complete this topic MENINGOCOCCAL GROUPS A/C/Y/W VACCINE Aged Out No longer eligible b ased on patient's age to complete this topic Procedures Procedure Name Priority Date/Time Associated Diagnosis Comments EKG 12-LEAD Routine 04/15/2025 3:35 PM CDT Palpitations HEMOGLOBIN A1C (EXTERNAL RESULT ENTRY) Routine 11/26/2024 from Last 3 Months or Most Recently Relevant to Health Maintenance Results * EKG 12-Lead (04/15/2025 3:35 PM CDT) us Bryan López MD ECG ORDERABLES Final Res ult [facility] RESULT SCAN * HEMOGLOBIN A1C (EXTERNAL RESULT ENTRY) (11/26/2024) Hemoglobin A1c (EXTERNAL RESULT) 5.7 % OUTSIDE REFERENCE LAB Comment:[facility] (scanned) Blood BLOOD SPECIMEN / Unknown 11/26/2024 Historical Provider LAB - CHEMISTRY ORDERABLE S Final Result Performing Organization Address [facility] Co de Phone Number OUTSIDE REFERENCE LAB from Last 3 Months or Most Recently Relevant to Health Maintenance Insurance ANTH Care Teams Breakfast Hostess Relationship Specialty Start Date End Date Yana Hayden DO [address] [place] [address] PCP - General Family Medicine 12/29/20 Bryan López [place] [address] [address] Consulting Physician Cardiac Electrophysiology 12/29/20
== END 2025-06-03 10:28 | disposition home or self-care (01) ==
LOC: ANHNEURO 10:30
PROVIDERS: PCP Family Medicine; Visit Provider Family Medicine
DX: M54.16 Radiculopathy, lumbar region (principal); R20.0 Anesthesia of skin; R94.131 Abnormal electromyogram [EMG]
CPT/HCPCS: 95886; 95910